=== PATIENT | female | born 1990 ===

== ENCOUNTER 2022-01-09 16:29 | Emergency (ER) | payer MEDICAID, OTHER ==
[2022-01-09] MEDS: Naloxone 2 MG/2 ML Syringe IVPUSH ONE ×2 (16:44→16:48)
[2022-01-09] MEDS: Naloxone 2 MG/2 ML Syringe ONE (16:44)
[2022-01-09] MEDS ORDERED: Sodium Chloride 0.9% 10 ML Syringe FLUSH PRN (16:44)
[2022-01-09] MEDS ORDERED: Sodium Chloride 0.9% 1,000 ML IV ONE (16:45)
[2022-01-09] MEDS ORDERED: Naloxone 2 MG/2 ML Syringe IVPUSH ONE (16:55)
[2022-01-09 17:30] LABS: PTT,PARTIAL THROMBOPLSTIN TIME 24.8 SEC (22.0-34.0)
[2022-01-09 17:32] LABS: ANION GAP 10.3 mEq/L (7-13); CHLORIDE,CL 105 mmol/L (98-107); SODIUM,NA 140 mmol/L (136-145)
[2022-01-09 17:34] LABS: ACETAMINOPHEN 0 ug/mL (10-30 (Therapeutic))
[2022-01-09] MEDS ORDERED: Midazolam 1 MG/ML 2 ML SDV IVPUSH ONE ×2 (17:59→18:10)
[2022-01-09] MEDS ORDERED: Midazolam 1 MG/ML 2 ML SDV ONE (18:11)
[2022-01-09 18:34] LABS: AMPHETAMINES,URINE NEGATIVE (NEGATIVE); BARBITURATES,URINE NEGATIVE (NEGATIVE); BENZODIAZEPINE,URINE POSITIVE (NEGATIVE); MDMA (ECSTASY), URINE NEGATIVE (NEGATIVE); METHADONE,URINE POSITIVE (NEGATIVE); METHAMPHETAMINES,URINE POSITIVE (NEGATIVE); OPIATES,URINE POSITIVE (NEGATIVE); OXYCODONE,URINE NEGATIVE (NEGATIVE); PHENCYCLIDINE,URINE NEGATIVE (NEGATIVE); TCA,URINE NEGATIVE (NEGATIVE)
[2022-01-12] MEDS: Naloxone 2 MG/2 ML Syringe ONE (11:48)
== END 2022-01-09 21:27 | disposition home or self-care (01) ==
LOC: DL.ED 16:29
DX: U07.1 COVID-19 (principal); F15.10 Other stimulant abuse, uncomplicated; F13.10 Sedative, hypnotic or anxiolytic abuse, uncomplicated; Z59.00 Homelessness unspecified; Z79.891 Long term (current) use of opiate analgesic
CPT/HCPCS: 36415; 80053; 80143; 80179; 80305; 80307; 81001; 84484; 84703; 85025; 85610; 85730; 87635; 96374; 96375; 99284; J2250; J2310; J3490; J7030; 99283; U0002

== ENCOUNTER 2023-07-20 13:03 | Emergency (ER) | payer MEDICAID ==
[2023-07-20] MEDS ORDERED: Diazepam 5 MG Tab PO ONE (13:28)
== END 2023-07-20 14:05 | disposition home or self-care (01) ==
LOC: DL.ED 13:03
DX: F11.23 Opioid dependence with withdrawal (principal); F17.210 Nicotine dependence, cigarettes, uncomplicated
CPT/HCPCS: 99282; 99284; A9270-GY